=== PATIENT | male | born 1955 | race Two or more races ===

== ENCOUNTER 2017-10-03 10:49 | Outpatient (CLI) | payer OTHER | END 2017-10-03 11:03 | disposition home or self-care (01) | LOC: RAD 10:49 | DX: M25.551 Pain in right hip (principal) ==

== ENCOUNTER 2017-10-06 15:50 | Emergency (ER) | payer OTHER ==
[~2017-10-06] VITALS: Ht 175.3 cm; Wt 149.7 kg
[2017-10-06] MEDS ORDERED: PLAVIX75 MG ×2 (16:34→16:36)
[2017-10-06] MEDS ORDERED: ASPIR 8181 MG (16:35)
[2017-10-06] MEDS ORDERED: METOPROLOL SUCC25 MG (16:35)
[2017-10-06] MEDS ORDERED: HUMULIN 70100 UNIT/2 (16:35)
[2017-10-06] MEDS ORDERED: FUROSEMIDE20 MG (16:35)
[2017-10-06] MEDS ORDERED: ENALAPRIL MALEA20 MG (16:35)
[2017-10-06] MEDS ORDERED: AMLODIPINE BESY10 MG (16:36)
[2017-10-06] MEDS ORDERED: NEURONTIN300 MG (16:36)
[2017-10-06] MEDS ORDERED: SIMVASTATIN20 MG (16:36)
[2017-10-06] MEDS ORDERED: HYDROCHLOROTHIA25 MG (16:36)
== END 2017-10-06 21:38 | disposition home or self-care (01) ==
LOC: ER 15:50
DX: L03.115 Cellulitis of right lower limb (principal)

== ENCOUNTER 2017-10-17 13:49 | Inpatient (IN) | payer OTHER ==
[~2017-10-17] VITALS: Ht 175.3 cm; Wt 149.7 kg
[~2017-10-17 13:49] MED LIST: AMLODIPINE BESY10 MG; ASPIR 8181 MG; ENALAPRIL MALEA20 MG; FUROSEMIDE20 MG; HUMULIN 70100 UNIT/2; HYDROCHLOROTHIA25 MG; METOPROLOL SUCC25 MG; NEURONTIN300 MG; PLAVIX75 MG; SIMVASTATIN20 MG
[2017-10-17] MEDS ORDERED: HUMULIN N100 UNIT/2 (14:15)
== END 2017-10-28 19:17 | disposition home health service (06) | DRG 571 ==
LOC: ER 13:49 → SEC-K 18:50 → MEDI 18:50
PROC: 0JBN0ZZ Excision of Right Lower Leg Subcutaneous Tissue and Fascia, Open Approach (ICD-10-PCS; principal; 2017-10-25)
DX: L03.115 Cellulitis of right lower limb (principal); L97.818 Non-pressure chronic ulcer of other part of right lower leg with other specified severity; L03.116 Cellulitis of left lower limb; I10 Essential (primary) hypertension; E66.01 Morbid (severe) obesity due to excess calories; I25.10 Atherosclerotic heart disease of native coronary artery without angina pectoris; E11.9 Type 2 diabetes mellitus without complications

== ENCOUNTER → 2018-07-23 | Outpatient (CLI) | payer OTHER ==
[~2018-07-23] MED LIST changes: +HUMULIN N100 UNIT/2
== END | disposition home or self-care (01) ==
LOC: NUCLEAR 07:00
DX: I25.9 Chronic ischemic heart disease, unspecified (principal)

== ENCOUNTER 2021-10-10 13:12 | Outpatient (CLI) | payer OTHER | END 2021-10-10 13:24 | disposition home or self-care (01) | LOC: RAD 13:12 | PROVIDERS: ATTEND Orthopaedic Surgery | DX: M25.561 Pain in right knee (principal); M25.562 Pain in left knee ==

== ENCOUNTER → 2023-12-31 | Emergency (ER) | payer OTHER ==
[~2023-12-31] VITALS: Ht 175.3 cm; Wt 181.4 kg
[~2023-12-31] MED LIST changes: +0.9 % SODIUM CHLORIDE 1,000 ML IV SCH; +KETOROLAC TROMETHAMINE 30 MG VIAL IV ONE; +KETOROLAC TROMETHAMINE 30 MG VIAL ONE
[2023-12-31 21:12] LABS: HEMATOCRIT 34.3 % (39.0-48.0); HEMOGLOBIN 11.5 g/dL (13-16.00); MEAN CELL VOLUME 93.8 fL (80.0-100.00); MEAN CORPUSCULAR HEMOGLOBIN 31.4 pg (27.00-32.0); MEAN CORPUSCULAR HGB CONC 33.5 g/dl (32.0-36.0); PLATELET COUNT 235 K/uL (150-450); RED BLOOD COUNT 3.66 M/uL (4.00-6.00); RED CELL DISTRIBUTION WIDTH 15.7 % (11.5-14.5)
[2023-12-31 21:32] LABS: ALBUMIN 2.8 gm/dL (3.4-5.0); BILIRUBIN TOTAL 1.59 mg/dL (0.3-1.2); CALCIUM 8.4 mg/dL (8.5-10.1); CREATININE SERUM 0.69 mg/dL (0.70-1.30); GFR 114.37; GLOBULINA 3.7 G/DL (2.4-3.5); POTASSIUM 3.33 mEq/L (3.5-5.1); TOTAL PROTEIN 6.5 gm/dL (6.4-8.2)
== END | disposition home or self-care (01) ==
LOC: ER 20:32
PROVIDERS: General Practice
DX: M54.89 Other dorsalgia (principal); M51.36 Other intervertebral disc degeneration, lumbar region; E11.9 Type 2 diabetes mellitus without complications; Z79.4 Long term (current) use of insulin; I10 Essential (primary) hypertension